=== PATIENT | male | born 1940 | race Caucasian/White ===

== ENCOUNTER → 2017-06-22 | Outpatient (CLI) | payer MEDICARE, BC | LOC: CFH 12:12 | PROVIDERS: ATTEND Nurse Practitioner Family | DX: M19.011 Primary osteoarthritis, right shoulder (principal); M25.512 Pain in left shoulder; Z91.81 History of falling; Z98.890 Other specified postprocedural states ==

== ENCOUNTER 2018-01-22 11:42 | Emergency (ER) | payer MEDICARE, BC ==
[~2018-01-22] VITALS: Ht 182.9 cm; Wt 97.8 kg
[2018-01-22 11:45] VITALS: BP 116/75
[2018-01-22 12:29] LABS: BASOPHILS # (AUTO) 0.08 x10^3/uL (0-0.1); BASOPHILS % (AUTO) 1 % (0-1); EOSINOPHILS # (AUTO) 0.52 x10^3/uL (0-0.4); EOSINOPHILS % (AUTO) 8 % (1-7); LYMPHOCYTES % (AUTO) 20 % (22-44); MD NO; MEAN CORPUSCULAR HEMOGLOBIN 31.1 pg (27.5-34.5); MEAN CORPUSCULAR HGB CONC 34.1 g/dL (33.2-36.2); MONOCYTES # (AUTO) 0.42 x10^3/uL (0.2-0.8); MONOCYTES % (AUTO) 6 % (2-9); NEUTROPHILS # (AUTO) 4.26 x10^3/uL (1.8-6.8); NEUTROPHILS % (AUTO) 65 % (42-75); PLATELET COUNT 167 x10^3/uL (130-400); RED CELL DISTRIBUTION WIDTH 13.6 % (9.4-14.8)
[2018-01-22 12:37] LABS: ALBUMIN 3.7 g/dL (3.4-5.0); ANION GAP 5 mmol/L (5-15); CALCIUM 9.1 mg/dL (8.5-10.1); CHLORIDE 108 mmol/L (98-107); CREATININE 1.34 mg/dL (0.7-1.3)
[2018-01-22] MEDS ORDERED: SOTA120T26 PO (12:38)
[2018-01-22] MEDS ORDERED: PANT40TA5 PO (12:39)
[2018-01-22] MEDS ORDERED: PRAV80TA2 PO (12:39)
[2018-01-22] MEDS ORDERED: LOSA1TAB19 PO (12:40)
[2018-01-22] MEDS ORDERED: APIX5TAB PO (12:40)
[2018-01-22] MEDS ORDERED: SILD50TA PO (12:41)
== END 2018-01-22 13:42 | disposition home or self-care (01) ==
LOC: ED 13:09
DX: G57.11 Meralgia paresthetica, right lower limb (principal); Z86.718 Personal history of other venous thrombosis and embolism
CPT/HCPCS: 36415; 80048; 82040; 85025; 99285

== ENCOUNTER → 2018-06-30 | Outpatient (CLI) | payer MEDICARE, BC ==
[~2018-06-30] MED LIST: APIX5TAB PO; LOSA1TAB19 PO; OMNIPAQUE 350 MG/ML, 100ML BOTTLE ONE; PANT40TA5 PO; PRAV80TA2 PO; SILD50TA PO; SOTA120T26 PO
== END | disposition home or self-care (01) ==
LOC: RAD 13:21
PROVIDERS: ATTEND Nurse Practitioner Family
DX: L91.0 Hypertrophic scar (principal); K57.30 Diverticulosis of large intestine without perforation or abscess without bleeding
CPT/HCPCS: 74177; Q9967